=== PATIENT | male | born 1990 | race Caucasian/White ===

== ENCOUNTER → 2025-05-05 10:19 | Outpatient (BNVA) | payer MEDICAID, SELFPAY | PROVIDERS: PCP Family Medicine; Visit Provider Nurse Practitioner Family | DX: Z00.00 Encounter for general adult medical examination without abnormal findings (principal); Z79.899 Other long term (current) drug therapy; Z13.6 Encounter for screening for cardiovascular disorders; L03.012 Cellulitis of left finger; E55.9 Vitamin D deficiency, unspecified | CPT/HCPCS: 80053; 80061; 82306; 83036; 84443; 85025; 85651; 86140 ==

== ENCOUNTER 2025-06-09 13:57 | Outpatient (CLI) | payer MEDICAID, SELFPAY ==
--- NOTE | 2025-06-09 14:49 | USCV_ITS ---
Braxton Trent Age: 35 Gender: M : 1990 Exam Date: 06/09/2025 14:46 Ordering Phys: PEEWEE Villalta APRN Technologist: Exam Location: Indication: PEDAL EDMA BP: / HR: Rhythm: Sinus Technical Quality: Adequate MEASUREMENTS (Male / Female) Normal Values FINDINGS Left Ventricle Normal LV size and ejection fraction of 64%. No gross wall motion abnormalities Right Ventricle The right ventricle is normal in size and function. Right Atrium The right atrium is normal in size. Left Atrium The left atrium is normal in size. Mitral Valve Trace mitral valve regurgitation. Aortic Valve Trace aortic valve regurgitation. Tricuspid Valve Trace tricuspid valve regurgitation. Pulmonic Valve Thickened pulmonic valve. Pericardium Normal pericardium without effusion. Aorta Normal ascending aorta dimension. IVC The inferior vena cava appears normal. CONCLUSIONS Normal LV size and ejection fraction of 64%. No gross wall motion abnormalities. Normal cardiac chamber sizes. Trace of aortic, mitral and tricuspid regurgitation There is no pericardial effusion. There are no intracardiac masses. No similar previous studies are available for comparison. Dr Dorita Castillo MD FACC (Electronically Signed) Final Date: 12 June 2025 22:41 S
== END 2025-06-09 13:58 | disposition home or self-care (01) ==
PROVIDERS: PCP Family Medicine; Visit Provider Nurse Practitioner Family
DX: R06.09 Other forms of dyspnea (principal); R53.83 Other fatigue; Z82.49 Family history of ischemic heart disease and other diseases of the circulatory system; I99.9 Unspecified disorder of circulatory system; R60.9 Edema, unspecified; I08.3 Combined rheumatic disorders of mitral, aortic and tricuspid valves
CPT/HCPCS: 93306

== ENCOUNTER 2025-06-20 13:31 | Outpatient (CLI) | payer MEDICAID, SELFPAY ==
--- NOTE | 2025-06-20 13:39 | XR_ITS ---
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 No significant compression deformity or focal lesion of the lumbar vertebrae. Minimal vertebral body osteophytosis L4 and L5. Intervertebral disc spaces are intact and relatively well preserved. No significant neutral listhesis. No significant vertebral body movement with flexion or extension. XR/XR lumbar spine 6V w f/e [id number] IMPRESSION: Minimal degenerative spondylosis as above.
== END 2025-06-20 13:32 | disposition home or self-care (01) ==
LOC: RAD 13:33
PROVIDERS: PCP Family Medicine; Visit Provider Nurse Practitioner Family
DX: G57.93 Unspecified mononeuropathy of bilateral lower limbs (principal); M47.896 Other spondylosis, lumbar region
CPT/HCPCS: 72114